=== PATIENT | male | born 1955 | race Caucasian/White ===

== ENCOUNTER 2017-04-07 09:30 | Day surgery (SDC) | payer MEDICARE, OTHER ==
[~2017-04-07 09:30] MED LIST: Lactated Ringers 1,000 ML IV SCH; Lidocaine 1%/Sod Bicarbonate in NS 8.4% 1 ML Syringe PRN; Sodium Chloride 0.9% 10 ML Syringe FLUSH PRN
[2017-04-07] MEDS ORDERED: Lidocaine 1% 4 ML ONE (09:47)
[2017-04-07] MEDS ORDERED: Propofol 200 MG/20 ML SDV ONE (09:51)
[2017-04-07] MEDS ORDERED: fentaNYL 100 MCG/2 ML SDV ONE (10:15)
[2017-04-07] MEDS ORDERED: Midazolam 1 MG/ML 2 ML SDV ONE (10:16)
--- NOTE | 2017-04-07 10:17 | PCM.PREANE ---
Preanesthetic Assessment - Anesthesia/Transfusion/Family Hx Anesthesia History: Prior Anesthesia Without Reaction Family History of Anesthesia Reaction: No - Review of Systems General: No Symptoms Pulmonary: No Symptoms Cardiovascular: No Symptoms Gastrointestinal: No Symptoms Neurological: Other (Quadriplegic C6 cord injury) - Physical Assessment NPO Status Date: 04/06/17 NPO Status Time: 18:00 Pulse: 62 O2 Sat by Pulse Oximetry: 96 Respiratory Rate: 16 Blood Pressure: 148/97 Temperature: 98.9 C Weight: 80 kg ASA Class: 3 Mental Status: Alert & Oriented x3 Airway Class: Mallampati = 1 Dentition: Reports: Broken Tooth/Teeth (Poor dentition, black at gumline, broken teeth. ), Caries Thyro-Mental Finger Breadths: 3 Mouth Opening Finger Breadths: 3 ROM/Head Extension: Full Lungs: Clear to Auscultation, Normal Respiratory Effort Cardiovascular: Regular Rate, Regular Rhythm - Allergies Allergies/Adverse Reactions: Allergies Allergy/AdvReac Type Severity Reaction Status Date / Time No Known Drug Allergies Allergy Other Verified 04/06/17 09:41 - Acknowledgements Anesthesia Type Planned: MAC Pt an Appropriate Candidate for the Planned Anesthesia: Yes Alternatives and Risks of Anesthesia Discussed w Pt/Guardian: Yes Pt/Guardian Understands and Agrees with Anesthesia Plan: Yes Additional Comments: Spoke with the patient regarding the risk of autonomic hyperreflexia. He is very knowledgeable regarding this risk. He wishes to proceed with the procedure and will empty his bladder prior to going to the OR. PreAnesthesia Questionnaire HEENT History: Gastrointestinal History: Reports: Hemorrhoids Genitourinary History: Reports: Neurogenic Bladder, UTI, Recurrent Musculoskeletal History: Reports: Arthritis Other Musculoskeletal History: muscle spasticity Other Neuro History: quadraplegic - Past Surgical History Other HEENT Surgeries/Procedures: neck surgery GI Surgical History: Reports: Appendectomy - SUBSTANCE USE Smoking Status *Q: Never Smoker Recreational Drug Use History: No - HOME MEDS Home Medications: Home Meds Hydrocortisone [Cortisone] 1 gm TOP ASDIRECTED PRN 04/06/17 [History] Ibuprofen 200 mg PO ASDIRECTED PRN 04/06/17 [History] Multivitamin [Multivitamins] 1 tab PO DAILY 04/06/17 [History] Oxybutynin 5 mg PO ASDIRECTED 04/06/17 [History] Oxybutynin Chloride [Ditropan Xl] 10 mg PO DAILY 04/06/17 [History] - CURRENT (IN HOUSE) MEDS Current Meds: Current Medications Lactated Ringer's (Ringers, Lactated) 1,000 mls @ 125 mls/hr IV ASDIRECTED MIGUE Stop: 04/07/17 23:00 Lidocaine/Sodium Bicarbonate (Buffered Lidocaine 1% In Ns 8.4%) 0.25 ml .XX ONETIME PRN PRN Reason: Prior to IV Start Stop: 04/07/17 18:00 Sodium Chloride (Saline Flush) 10 ml FLUSH ASDIRECTED PRN PRN Reason: Keep Vein Open Stop: 04/07/17 18:00 Discontinued Medications Fentanyl (Sublimaze) Confirm Administered Dose 100 mcg .ROUTE .STK-MED ONE Stop: 04/07/17 10:16 Lidocaine HCl (Xylocaine-Mpf 1%) Confirm Administered Dose 4 mls @ as directed .ROUTE .STK-MED ONE Stop: 04/07/17 09:48 Midazolam HCl (Versed 1 Mg/Ml) Confirm Administered Dose 2 mg .ROUTE .STK-MED ONE Stop: 04/07/17 10:17 Propofol (Diprivan 20 Ml) Confirm Administered Dose 200 mg .ROUTE .STK-MED ONE Stop: 04/07/17 09:52
[2017-04-07] MEDS ORDERED: Bupivacaine 0.5% 30 ML SDV ONE (10:22)
[2017-04-07] MEDS ORDERED: Lidocaine 1% 30 ML SDV ONE (10:22)
[2017-04-07] MEDS ORDERED: Lidocaine 1% with EPINEPHrine 1:100,000 20 ML MDV ONE (10:38)
[2017-04-07] MEDS ORDERED: Bupivacaine 0.5%/EPINEPHrine 1:200,000 50 ML MDV ONE (10:38)
--- NOTE | 2017-04-07 11:18 | PCM.OPNOTE ---
- General Post-Op/Procedure Note Date of Surgery/Procedure: 04/07/17 Operative Procedure(s): Anoscopy with 2 column rubber band ligation Findings: 3 column prolapsing internal hemorrhoids with the left lateral and right posterior columns beginning the most pronounced. There were no fissures or fistula seen. Pre Op Diagnosis: Intermittent rectal bleeding Post-Op Diagnosis: 3 column complicated by bleeding hemorrhoids Anesthesia Technique: MAC, Moderate Sedation Primary Surgeon: Jarek Aburto Pathology: None EBL in mLs: 0 Complications: None Condition: Good Free Text/Narrative:: After adequate IV sedation and analgesia was obtained with monitoring the patient was positioned on his left side. Perianal inspection revealed the prolapsing internal hemorrhoids which are reducible and nonthrombosed. Additional findings are noted above. Anoscopy revealed the hemorrhoids with no fissures or fistulas seen. On digital the sphincter tone was unremarkable. The prostate was normal. With the anal retractor, I exposed the base of the left lateral hemorrhoid and placed 2 rubber bands proximal to the dentate line in 2 areas. The right posterior column was addressed next and I placed 2 rubber bands with the sure shot proximal to the dentate line in this area as well. There was no bleeding after the procedure. He tolerated the procedure well.
--- NOTE | 2017-04-07 11:34 | PCM48HPAN ---
Post Anesthesia Note - EVALUATION WITHIN 48HRS OF ANESTHETIC Vital Signs in Normal Range: Yes Patient Participated in Evaluation: Yes Respiratory Function Stable: Yes Airway Patent: Yes Cardiovascular Function Stable: Yes Hydration Status Stable: Yes Pain Control Satisfactory: Yes Nausea and Vomiting Control Satisfactory: Yes Mental Status Recovered: Yes - COMMENTS/OBSERVATIONS Free Text/Narrative:: Anesthetic uneventful, tolerated procedure will. Darin is awake and drinking some juice. No further questions at this time.
[2017-04-07 13:44] VITALS: BP 92/58
== END 2017-04-07 12:40 | disposition home or self-care (01) ==
LOC: JD.SDS 09:30
PROVIDERS: ATTEND Surgery
DX: K64.8 Other hemorrhoids (principal); Z79.899 Other long term (current) drug therapy; Z90.49 Acquired absence of other specified parts of digestive tract; Z98.890 Other specified postprocedural states; Z72.0 Tobacco use
CPT/HCPCS: 46221; J2250; J3010; J7120; 00902; J2704

== ENCOUNTER 2017-12-27 13:38 | Emergency (ER) | payer MEDICARE, OTHER ==
[2017-12-27 14:04] VITALS: BP 122/84
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
[2017-12-27] MEDS ORDERED: Sodium Chloride 0.9% 10 ML Syringe FLUSH PRN (14:30)
[2017-12-27] MEDS ORDERED: Sodium Chloride 0.9% 1,000 ML IV SCH (14:30)
[2017-12-27] MEDS ORDERED: Iopamidol 612 MG/ML 150 ML Bottle IVPUSH ONE (14:30)
[2017-12-27] MEDS ORDERED: Diatrizoate Meglumine/Diatrizoate Sodium 37% 120 ML Bottle PO ONE (14:30)
[2017-12-27] MEDS: Sodium Chloride 0.9% 10 ML Syringe FLUSH PRN ×2 (14:48→15:31)
--- NOTE | 2017-12-27 16:49 | CT ---
CT abdomen and pelvis Technique: Multiple axial sections were obtained from above the dome of the diaphragm inferiorly through the pubic symphysis. Intravenous and oral contrast was utilized. Delayed images were obtained through the bladder. Comparison: No previous study. Findings: Incidental pectus excavatum deformity is seen. Heart is slightly enlarged. Mild scarring is seen within both lung bases. Liver shows no focal parenchymal abnormality. Spleen appears within normal limits. Adrenal glands show no nodule. Pancreas is within normal limits. Aorta shows atherosclerotic change and mild ectasia with no aneurysm. Kidneys show symmetric contrast enhancement. No hydronephrosis or mass is seen. No retroperitoneal adenopathy or mesenteric abnormalities are seen. Bladder calculi are seen. Prostate calcifications are also noted. Appendix is not definitely seen. Bone window settings were reviewed which shows scattered degenerative endplate spurring within the spine. Delayed images shows contrast within the distal ureters and bladder. Impression: 1. Bladder calculi and other incidental findings as noted above. Nothing acute is seen on CT study of the abdomen and pelvis. Diagnostic code #2
== END 2017-12-27 17:50 | disposition home or self-care (01) ==
LOC: JD.ED 13:38
DX: E87.1 Hypo-osmolality and hyponatremia (principal); G82.50 Quadriplegia, unspecified; N39.0 Urinary tract infection, site not specified; Z79.899 Other long term (current) drug therapy
CPT/HCPCS: 36415; 74177; 80053; 81001; 83690; 85007; 85027; 86140; 87086; 96360; 96361; 99284; J7040; J7050; Q9963; Q9967

== ENCOUNTER 2021-04-24 11:51 | Emergency (ER) | payer MEDICARE, OTHER ==
[2021-04-24 12:09] VITALS: BP 139/114; PULSE 75
[2021-04-24] MEDS ORDERED: Sodium Chloride 0.9% 10 ML Syringe FLUSH PRN (12:14)
[2021-04-24] MEDS ORDERED: Sodium Chloride 0.9% 1,000 ML IV STA (12:15)
[2021-04-24] MEDS ORDERED: Sodium Chloride 0.9% 500 ML IV STA ×2 (12:31→13:25)
[2021-04-24] MEDS ORDERED: cefTRIAXone 2 GM in Sodium Chloride 0.9% 100 ML IV ONE (13:27)
--- NOTE | 2021-04-24 14:11 | EDM.PDOC ---
ED HPI GENERAL MEDICAL PROBLEM - General Chief Complaint: Genitourinary Problem Stated Complaint: BLOOD IN URINE Time Seen by Provider: 04/24/21 12:14 Source of Information: Reports: Patient, RN Notes Reviewed History Limitations: Reports: No Limitations - History of Present Illness INITIAL COMMENTS - FREE TEXT/NARRATIVE: Patient is a 65-year-old male presenting to the emergency department from the [facility] with complaints of gross hematuria and low blood pressure. Patient is paraplegic and reports that he self caths daily. Yesterday he noticed blood in his urine. He has had recurrent urinary tract infections in the past. Blood pressure at [facility] was found to be 70/50 while sitting in his chair. He denies any fever, nausea, vomiting dizziness, or back pain but states he has felt somewhat chilled off and on. Reports his blood pressure is normally in the low 90s systolically. He reports that overall he feels well. He states that he has noticed his blood pressure tends to drop after he eats. He did eat prior to coming to the ER. He has no symptoms of hypotension. He is scheduled to see a urologist at [facility] in [place] towards the end of the month, however he cannot remember the name of the provider. Bladder Pain Score (Numeric/FACES): 5 - Related Data Allergies Allergy/AdvReac Type Severity Reaction Status Date / Time No Known Drug Allergies Allergy Other Verified 04/24/21 12:09 Home Meds: Home Meds Ibuprofen 200 mg PO ASDIRECTED PRN 04/06/17 [History] Multivitamin [Multivitamins] 1 tab PO DAILY 04/06/17 [History] Oxybutynin Chloride [Ditropan Xl] 5 mg PO BID 04/06/17 [History] Cefdinir [Omnicef] 300 mg PO BID 10 Days #20 cap 04/24/21 [Rx] Sulfamethoxazole/Trimethoprim [Bactrim Ds Tablet] 1 each PO BID #14 tablet 04/24/21 [Rx] Sulfamethoxazole/Trimethoprim [Bactrim Ds Tablet] 1 each PO DAILY 04/24/21 [History] Past Medical History HEENT History: Reports: Impaired Vision Gastrointestinal History: Reports: Hemorrhoids Other Gastrointestinal History: Bowel program Genitourinary History: Reports: Neurogenic Bladder, UTI, Recurrent Musculoskeletal History: Reports: Arthritis, Fracture Other Musculoskeletal History: Neck fracture that caused patient to be quadriplegic. Muscle spasticity. Other Neuro History: Neck fracture that caused patient to be quadriplegic. - Past Surgical History HEENT Surgical History: Reports: Adenoidectomy, Naso-Sinus Surgery, Tonsillectomy Other HEENT Surgeries/Procedures: neck surgery GI Surgical History: Reports: Appendectomy Male Surgical History: Reports: Other (See Below) Other Male Surgeries/Procedures: Urinary bypass Other Neurological Surgeries/Procedures: Spinal cord surgery in [place] Social & Family History - Family History Family Medical History: No Pertinent Family History - Tobacco Use Tobacco Use Status *Q: Current Every Day Tobacco User Years of Tobacco use: 50 Packs/Tins Daily: 0.5 - Caffeine Use Caffeine Use: Reports: Coffee - Recreational Drug Use Recreational Drug Use: No ED ROS GENERAL - Review of Systems Review Of Systems: See Below Constitutional: Reports: Chills. Denies: Fever HEENT: Reports: No Symptoms Respiratory: Reports: No Symptoms Cardiovascular: Reports: No Symptoms Endocrine: Reports: No Symptoms GI/Abdominal: Reports: No Symptoms. Denies: Abdominal Pain, Diarrhea, Nausea, Vomiting : Reports: Hematuria, Urinary Retention (neurogenic bladder). Denies: Flank Pain Musculoskeletal: Reports: No Symptoms Skin: Reports: No Symptoms Neurological: Reports: No Symptoms Psychiatric: Reports: No Symptoms Hematologic/Lymphatic: Reports: No Symptoms Immunologic: Reports: No Symptoms ED EXAM, RENAL/ - Physical Exam Exam: See Below Exam Limited By: No Limitations General Appearance: Alert, WD/WN, No Apparent Distress Respiratory/Chest: No Respiratory Distress, Lungs Clear, Normal Breath Sounds, No Accessory Muscle Use, Chest Non-Tender Cardiovascular: Normal Peripheral Pulses, Regular Rate, Rhythm, No Edema, No Gallop, No JVD, No Murmur, No Rub GI/Abdominal: Normal Bowel Sounds, Soft, Non-Tender, No Organomegaly, No Distention, No Abnormal Bruit, No Mass Back Exam: Normal Inspection, Full Range of Motion. No: CVA Tenderness (L), CVA Tenderness (R) Neurological: Alert, Oriented, Normal Cognition Psychiatric: Normal Affect, Normal Mood Skin Exam: Warm, Dry, Intact, Normal Color, No Rash Course - Vital Signs Last Recorded V/S: Last Vital Signs Temp 98.9 F 04/24/21 12:06 Pulse 75 04/24/21 12:06 Resp 16 04/24/21 12:06 BP 139/114 H 04/24/21 12:06 Pulse Ox 98 04/24/21 12:06 - Orders/Labs/Meds Orders: Active Orders 24 hr Category Date Time Status BLOOD CULTURE [MREF] Stat Lab 04/24/21 12:37 Received BLOOD CULTURE [MREF] Stat Lab 04/24/21 12:41 Received CULTURE URINE [MREF] Stat Lab 04/24/21 12:15 Received Blood Culture x2 Reflex Set [OM.PC] Stat Oth 04/24/21 12:14 Ordered Saline Lock Insert [OM.PC] Stat Oth 04/24/21 12:14 Ordered Labs: Laboratory Tests 04/24/21 04/24/21 04/24/21 Range/Units 12:15 12:37 12:37 WBC 6.88 (4.23-9.07) K/mm3 RBC 4.37 L (4.63-6.08) M/mm3 Hgb 13.1 L (13.7-17.5) gm/dl Hct 38.9 L (40.1-51.0) % MCV 89.0 (79.0-92.2) fl MCH 30.0 (25.7-32.2) pg MCHC 33.7 (32.2-35.5) g/dl RDW Std Deviation 42.7 (35.1-43.9) fL Plt Count 212 (163-337) K/mm3 MPV 10.8 (9.4-12.3) fl Neutrophils % (Manual) 70 H (40-60) % Band Neutrophils % 0 (0-10) % Lymphocytes % (Manual) 27 (20-40) % Atypical Lymphs % 0 % Monocytes % (Manual) 1 L (2-10) % Eosinophils % (Manual) 2 (0.8-7.0) % Basophils % (Manual) 0 L (0.2-1.2) Platelet Estimate Adequate RBC Morph Comment Normal PT 10.8 (9.7-12.0) SECONDS INR 1.01 APTT 30.3 (21.7-31.4) SECONDS Sodium (136-145) mEq/L Potassium (3.5-5.1) mEq/L Chloride (98-107) mEq/L Carbon Dioxide (21-32) mEq/L Anion Gap (5-15) BUN (7-18) mg/dL Creatinine (0.7-1.3) mg/dL Est Cr Clr Drug Dosing mL/min Estimated GFR (MDRD) (>60) mL/min BUN/Creatinine Ratio (14-18) Glucose (70-99) mg/dL Lactic Acid (0.4-2.0) mmol/L Calcium (8.5-10.1) mg/dL Total Bilirubin (0.2-1.0) mg/dL AST (15-37) U/L ALT (16-63) U/L Alkaline Phosphatase (46-116) U/L C-Reactive Protein (<1.0) mg/dL Total Protein (6.4-8.2) g/dl Albumin (3.4-5.0) g/dl Globulin gm/dL Albumin/Globulin Ratio (1-2) Urine Color Red H (Yellow) Urine Appearance Clear (Clear) Urine pH >=9.0 H (5.0-8.0) Ur Specific [place] 1.010 (1.005-1.030) Urine Protein 3+ H (Negative) Urine Glucose (UA) 1+ H (Negative) Urine Ketones 3+ H (Negative) Urine Occult Blood 3+ H (Negative) Urine Nitrite Positive H (Negative) Urine Bilirubin 3+ H (Negative) Urine Urobilinogen >=8.0 H (0.2-1.0) Ur Leukocyte Esterase 3+ H (Negative) Urine RBC Too numerous to cnt H (0-5) /hpf Urine WBC 0-5 (0-5) /hpf Ur Epithelial Cells 0-5 (0-5) /hpf Urine Bacteria Few (FEW) /hpf Urine Mucus Not seen (FEW) /hpf 04/24/21 04/24/21 Range/Units 12:37 12:37 WBC (4.23-9.07) K/mm3 RBC (4.63-6.08) M/mm3 Hgb (13.7-17.5) gm/dl Hct (40.1-51.0) % MCV (79.0-92.2) fl MCH (25.7-32.2) pg MCHC (32.2-35.5) g/dl RDW Std Deviation (35.1-43.9) fL Plt Count (163-337) K/mm3 MPV (9.4-12.3) fl Neutrophils % (Manual) (40-60) % Band Neutrophils % (0-10) % Lymphocytes % (Manual) (20-40) % Atypical Lymphs % % Monocytes % (Manual) (2-10) % Eosinophils % (Manual) (0.8-7.0) % Basophils % (Manual) (0.2-1.2) Platelet Estimate RBC Morph Comment PT (9.7-12.0) SECONDS INR APTT (21.7-31.4) SECONDS Sodium 127 L (136-145) mEq/L Potassium 4.0 (3.5-5.1) mEq/L Chloride 92 L (98-107) mEq/L Carbon Dioxide 26 (21-32) mEq/L Anion Gap 13.0 (5-15) BUN 15 (7-18) mg/dL Creatinine 0.9 (0.7-1.3) mg/dL Est Cr Clr Drug Dosing 84.83 mL/min Estimated GFR (MDRD) > 60 (>60) mL/min BUN/Creatinine Ratio 16.7 (14-18) Glucose 92 (70-99) mg/dL Lactic Acid 1.2 (0.4-2.0) mmol/L Calcium 8.3 L (8.5-10.1) mg/dL Total Bilirubin 0.4 (0.2-1.0) mg/dL AST 20 (15-37) U/L ALT 23 (16-63) U/L Alkaline Phosphatase 61 (46-116) U/L C-Reactive Protein <0.2 (<1.0) mg/dL Total Protein 7.2 (6.4-8.2) g/dl Albumin 3.8 (3.4-5.0) g/dl Globulin 3.4 gm/dL Albumin/Globulin Ratio 1.1 (1-2) Urine Color (Yellow) Urine Appearance (Clear) Urine pH (5.0-8.0) Ur Specific [place] (1.005-1.030) Urine Protein (Negative) Urine Glucose (UA) (Negative) Urine Ketones (Negative) Urine Occult Blood (Negative) Urine Nitrite (Negative) Urine Bilirubin (Negative) Urine Urobilinogen (0.2-1.0) Ur Leukocyte Esterase (Negative) Urine RBC (0-5) /hpf Urine WBC (0-5) /hpf Ur Epithelial Cells (0-5) /hpf Urine Bacteria (FEW) /hpf Urine Mucus (FEW) /hpf Meds: Medications Discontinued Medications Generic Name Dose Route Start Last Admin Trade Name Maxim PRN Reason Stop Dose Admin Sodium Chloride 1,000 mls @ 999 mls/hr 04/24/21 12:15 Normal Saline IV 04/24/21 13:15 NOW STA Sodium Chloride 500 mls @ 999 mls/hr 04/24/21 12:31 04/24/21 12:59 Normal Saline IV 04/24/21 12:45 999 mls/hr NOW STA Administration Sodium Chloride 500 mls @ 999 mls/hr 04/24/21 13:25 04/24/21 14:20 Normal Saline IV 04/24/21 13:55 999 mls/hr NOW STA Administration Ceftriaxone Sodium 2 gm/ 100 mls @ 200 mls/hr 04/24/21 13:27 04/24/21 14:15 Sodium Chloride IV 04/24/21 13:56 200 mls/hr ONETIME ONE Administration Sodium Chloride 10 ml 04/24/21 12:14 04/24/21 12:44 Sodium Chloride 0.9% 10 Ml Syringe FLUSH 10 ml ASDIRECTED PRN Administration Keep Vein Open - Re-Assessments/Exams Free Text/Narrative Re-Assessment/Exam: Patient is a 65-year-old male presenting to the emergency department with complaints of gross hematuria and hypotension. Patient is paraplegic and self caths. Reports developed blood in his urine yesterday. He has had problems with urinary tract infections in the past. Blood pressure on arrival to ER was 139/114, however after self cathing blood pressure came down to 76/68. Urine sample that he was able to produce is grossly bloody. I have ordered septic work-up. We will start with a 500 mill bolus of normal saline. 04/24/21 1330 Blood pressure continues to fluctuate. Initial pressure after the 501 bolus was 94/66, however subsequent pressure was 66/52. We will give an additional 500 mill bolus of normal saline. Urinalysis returned is grossly positive for urinary tract infection and significant amount of blood. We will start Rocephin 2 g IV. Hematology results are currently pending. 04/24/21 14:38 Hematology is significant for hemoglobin slightly low at 13.1, sodium 127, chloride 92. Otherwise unremarkable. White blood cells, lactic acid, and CRP are all normal. Pressure has been stable. Last pressure was 92/74 which she states is a normal blood pressure for him. Patient will be discharged home with a prescription for Omnicef. Urine has been sent for culture. Discussed return precautions. Discharge instructions as documented. 04/24/21 16:26 Patient called back to the ER and states that he is concerned that the Bactrim will not work for his urinary tract infection. States that he has been taking it for the last 3 days from an old prescription that he did not finish. I will send prescription for cefdinir. Urine has been sent for culture. Departure - Departure Time of Disposition: 14:39 Disposition: Home, Self-Care 01 Condition: Good Clinical Impression: UTI, Urinary tract infectious disease, Hyponatremia - Discharge Information *PRESCRIPTION DRUG MONITORING PROGRAM REVIEWED*: No *COPY OF PRESCRIPTION DRUG MONITORING REPORT IN PATIENT MANJIT: No Prescriptions: Sulfamethoxazole/Trimethoprim [Bactrim Ds Tablet] 1 each PO BID #14 tablet Cefdinir [Omnicef] 300 mg PO BID 10 Days #20 cap Instructions: Urinary Tract Infection, Adult, Gaqe-ed-Urgo Referrals: [facility] Plata MD [Primary Care Provider] - Forms: ED Department Discharge Additional Instructions: You were seen in the emergency department today for evaluation of blood in your urine and low blood pressure at the clinic. Work-up included blood work, urine sample, as well as blood and urine cultures. Results of your work-up show that you have a urinary tract infection and that your sodium was low. Otherwise your work-up was normal. There is no evidence of infection in your blood. While in the ER, he received a liter of IV fluids as well as IV antibiotics. Your blood pressures normalized after the fluids. You have been started on Bactrim for treatment of urinary tract infection. Take this as prescribed. Recommend increasing your sodium intake and decrease intake of plain water. Fluids such as Gatorade, Powerade, and propel have electrolytes in them which will help to increase her sodium. If you should develop any symptoms such as fever, vomiting, or any other symptoms of concern, please do not hesitate to return to the emergency department for reevaluation. Keep your appointment as scheduled in a month with urology. Sepsis Event Note (ED) - Focused Exam Vital Signs: Vital Signs Temp Pulse Resp BP Pulse Ox 04/24/21 12:06 98.9 F 75 16 139/114 H 98 - My Orders Last 24 Hours: My Active Orders 04/24/21 12:14 Blood Culture x2 Reflex Set [OM.PC] Stat Saline Lock Insert [OM.PC] Stat 04/24/21 12:15 CULTURE URINE [MREF] Stat 04/24/21 12:37 BLOOD CULTURE [MREF] Stat 04/24/21 12:41 BLOOD CULTURE [MREF] Stat - Assessment/Plan Last 24 Hours: My Active Orders 04/24/21 12:14 Blood Culture x2 Reflex Set [OM.PC] Stat Saline Lock Insert [OM.PC] Stat 04/24/21 12:15 CULTURE URINE [MREF] Stat 04/24/21 12:37 BLOOD CULTURE [MREF] Stat 04/24/21 12:41 BLOOD CULTURE [MREF] Stat
== END 2021-04-24 15:05 | disposition home or self-care (01) ==
LOC: JD.ED 11:51
DX: N39.0 Urinary tract infection, site not specified (principal); E87.1 Hypo-osmolality and hyponatremia; M19.90 Unspecified osteoarthritis, unspecified site; Z72.0 Tobacco use; Z79.899 Other long term (current) drug therapy
CPT/HCPCS: 36415; 80053; 81001; 83605; 85007; 85027; 85610; 85730; 86140; 87040; 87086; 87088; 87186; 96365; 99284; J0696; J7030

== ENCOUNTER 2023-02-19 19:10 | Emergency (ER) | payer MEDICARE, OTHER ==
[2023-02-19 19:54] VITALS: PULSE 69
[2023-02-19 20:01] LABS: BASOPHILS ABSOLUTE AUTO 0.03 K/mm3 (0.01-0.08); BASOPHILS PERCENT AUTO 0.5 % (0.1-1.2); EOSINOPHILS ABSOLUTE AUTO 0.22 K/mm3 (0.04-0.54); EOSINOPHILS PERCENT AUTO 3.7 (0.8-7.0); HEMATOCRIT 41.6 % (40.1-51.0); HEMOGLOBIN 13.9 gm/dl (13.7-17.5); IMMATURE GRAN ABSOLUTE AUTO 0.01 K/mm3 (0.00-0.10); IMMATURE GRAN PERCENT AUTO 0.2 % (<=1.0); LYMPHOCYTES ABSOLUTE AUTO 1.49 K/mm3 (1.32-3.57); LYMPHOCYTES PERCENT AUTO 25.2 % (21.8-53.1); MEAN CORPUSCULAR HEMOGLOBIN 29.3 pg (25.7-32.2); MEAN CORPUSCULAR HGB CONC 33.4 g/dl (32.2-35.5); MEAN CORPUSCULAR VOLUME 87.6 fl (79.0-92.2); MEAN PLATELET VOLUME 10.6 fl (9.4-12.3); MONOCYTES ABSOLUTE AUTO 0.52 K/mm3 (0.30-0.82); MONOCYTES PERCENT AUTO 8.8 % (5.3-12.2); NEUTROPHILS ABSOLUTE AUTO 3.64 K/mm3 (1.78-5.38); NEUTROPHILS PERCENT AUTO 61.6 % (34.0-67.9); PLATELET COUNT,PLT 179 K/mm3 (163-337); RED BLOOD CELL COUNT 4.75 M/mm3 (4.63-6.08); WHITE BLOOD CELL COUNT,WBC 5.91 K/mm3 (4.23-9.07)
[2023-02-19 20:18] LABS: INR 0.98; PROTHROMBIN TIME 10.5 SECONDS (9.7-12.0)
[2023-02-19 20:24] LABS: ALBUMIN 3.3 g/dl (3.4-5.0); ANION GAP 13.7 (5-15); BILIRUBIN TOTAL 0.3 mg/dL (0.2-1.0); BUN/CREATININE RATIO 17.8 (14-18); CALCIUM 8.5 mg/dL (8.5-10.1); CREATININE 0.9 mg/dL (0.7-1.3); EST CRCL DRUG DOSING (CG) 82.5 mL/min; POTASSIUM,K 3.7 mEq/L (3.5-5.1); PROTEIN TOTAL,TP 6.5 g/dl (6.4-8.2)
[2023-02-19 20:48] LABS: APPEARANCE,URINE CLEAR (Clear); BILIRUBIN,URINE NEGATIVE (Negative); COLOR,URINE YELLOW (Yellow); GLUCOSE,URINE NEGATIVE (Negative); KETONES,URINE NEGATIVE (Negative); LEUKOCYTE ESTERASE,URINE 3+ (Negative); NITRITE,URINE NEGATIVE (Negative); OCCULT BLOOD,URINE TRACE-INTACT (Negative); PROTEIN,URINE 1+ (Negative); UROBILINOGEN,URINE 0.2 (0.2-1.0)
[2023-02-19 21:32] VITALS: BP 96/75
[2023-02-19 21:38] LABS: BACTERIA,URINE MANY /hpf (FEW); HYALINE CASTS,URINE 0-5 /lpf (0-5); MUCUS,URINE MODERATE /hpf (FEW); RBC,URINE 0-5 /hpf (0-5); SQUAMOUS EPITHELIAL CELLS,UR 0-5 /hpf (0-5); WBC,URINE 50-75 /hpf (0-5)
== END 2023-02-19 22:15 | disposition home or self-care (01) ==
LOC: JD.ED 19:10
DX: R42 Dizziness and giddiness (principal); R55 Syncope and collapse; R41.0 Disorientation, unspecified
CPT/HCPCS: 36415; 70450; 70450-26; 71045; 71045-26; 80053; 81001; 84484; 85025; 85610; 93005; 99284